=== PATIENT | female | born 1970 | race Caucasian/White ===

== ENCOUNTER 2016-08-22 10:47 | Emergency (ER) | payer OTHER ==
[2016-08-22 11:41] LABS: BASO % 0.3 % (0.0-1.0); EOS # 0.1 K/mm3 (0.0-0.50); EOS % 1.6 % (0.0-3.0); LARGE UNSTAINED CELL # 0.1 K/mm3 (0.0-0.4); LARGE UNSTAINED CELL % 1.6 % (0.0-4.0); LYMPH # 1.1 K/mm3 (1.5-4.5); LYMPH % 17.3 % (24.0-44.0); MEAN CORPUSCULAR HEMOGLOBIN 30.2 pg (27.0-33.0); MEAN CORPUSCULAR HGB CONC 33.8 g/dl (32.0-36.5); MEAN CORPUSCULAR VOLUME 89.2 fl (80.0-96.0); MONO # 0.2 K/mm3 (0.0-0.8); MONO % 4.1 % (0.0-5.0); NEUTROPHILS # 4.3 K/mm3 (1.8-7.7); NEUTROPHILS % 75.1 % (36.0-66.0); PLATELET COUNT, AUTOMATED 364 k/mm3 (150-450); RED CELL DISTRIBUTION WIDTH 11.9 % (11.5-14.5); WHITE BLOOD COUNT 5.8 K/mm3 (4.0-10.0)
[2016-08-22 11:53] LABS: ANION GAP 9 MEQ/L (8-16); BLOOD UREA NITROGEN 8 MG/DL (7-18); CALCIUM LEVEL 8.6 MG/DL (8.5-10.1); CARBON DIOXIDE LEVEL 24 MEQ/L (21-32); CHLORIDE LEVEL 109 MEQ/L (98-107); CREATININE FOR GFR 0.72 MG/DL (0.55-1.02); GLOMERULAR FILTRATION RATE > 60.0 (>58); GLUCOSE, FASTING 88 MG/DL (70-105); POTASSIUM SERUM 4.3 MEQ/L (3.5-5.1); SODIUM LEVEL 142 MEQ/L (136-145)
--- NOTE | 2016-08-22 12:01 | REP ---
Clinical: Acute Headache . Comparison: None . Findings: The ventricles, sulci, and cisterns are normal in position and appearance. Patterson-white differentiation is maintained. No acute intracranial hemorrhage, mass/mass effect, pathology or trauma/injury. No evidence for acute infarction. No extra-axial fluid collection. Calvarium is intact. Paranasal sinuses and mastoid air cells are clear. Impression: Normal noncontrast head CT. No evidence for acute intracranial pathology or trauma/injury. Signed by Juan Duran MD 08/22/2016 11:52 A
[2016-08-22] MEDS ORDERED: ACETAMINOPHEN 325 MG TAB As Ordered ONE (12:53)
[2016-08-22] MEDS ORDERED: ONDANSETRON 4MG/2ML VIAL (J2405) As Ordered ONE (12:53)
[2016-08-22 12:54] LABS: FREE T4 1.26 NG/DL (0.76-1.46)
[2016-08-22] MEDS ORDERED: PROMETHAZINE INJ 25 MG/ML VIAL (J2550) As Ordered ONE (14:00)
--- NOTE | 2016-08-22 15:58 | REP ---
MRA BRAIN WITHOUT CONTRAST: HISTORY: Syncope. 3D [id number] MR angiography was performed at the level of the [place] of [place]. There is no aneurysm, arteriovenous malformation or atherosclerotic lesion. Major intracranial vessels are patent. The vertebral arteries are equal in size. IMPRESSION:Normal MRA brain. Signed by Moises Farr MD 08/22/2016 04:06 P
--- NOTE | 2016-08-22 16:00 | REP ---
MR BRAIN WITHOUT CONTRAST:HISTORY: Syncope. COMPARISON: 08/22/2016 A single small focus of increased signal intensity on T2 weighted images is present in the subcortical white matter of the right parietal lobe. There is no intraparenchymal hemorrhage, infarct, mass or midline shift. The ventricular system is normal in appearance. There is no extracerebral collection. The sinuses are clear. IMPRESSION: There is a single small focus of increased signal intensity in the subcortical white matter of the right parietal lobe. This is a non-specific finding. Signed by Moises Farr MD 08/22/2016 04:07 P
--- NOTE | 2016-08-22 18:55 | EDDOCDS ---
Nurse's Notes [facility] Name: Luda Barbour Age: 45 yrs Sex: Female : 1970 Arrival Date: 08/22/2016 Time: 10:47 Bed 10 Private MD: Jarocho [facility] Diagnosis: Concussion Presentation: 08/22 10:51 Presenting complaint: EMS states: pt fell on 08/08 and evaluated at [place] on 08/10. Was ead told CT was negative. Pt reports knot to back of head after fall, states has gone down since. Pt reports ongoing headaches and "very lethargic" since fall. pt states "I can't eat anything," "I lose track of time, my says I space out. I blacked out for 20 minutes in my car parked at [facility], by myself." Pt brought from [facility]. This patient has no additional risk factors. Adult Sepsis Screening: The patient does not have new or worsening altered mentation. Patient's respiratory rate is less than 22. Systolic blood pressure is greater than 100. Patient has a qSOFA score of 0- Negative Sepsis Screen. Suicide/Homicide risk assessment- the patient denies having any suicidal and/or homicidal ideations and does not present with any other emotional, behavioral or mental health complaints. 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 Transition of care: patient was received from a primary care office; [facility]. 10:51 Acuity: WENDY Level 3 ead 10:51 Method Of Arrival: Ambulance ead Triage Assessment: 10:58 Headache History: This patient does not have a history of previous headaches. General: ead Appears in no apparent distress, well nourished, well groomed, Behavior is appropriate for age, cooperative. Pain: Location: face and scalp Pain currently is 8 out of 10 on a pain scale. Pain began 2 weeks ago Also complains of nausea. The patient is triaged at the bedside. See Assessment in Nurses Notes section of ED record. Neurological: Level of Consciousness is awake, alert, obeys commands, Oriented to person, place, time. Respiratory: Airway is patent Respiratory effort is even, unlabored. GI: Reports nausea, vomiting. Derm: Skin is pink, warm & dry. 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 Vitamin Oral 2 tab once daily 2. vitamin M11-jahwb acid oral Unknown oral once daily 3. Calcium Citrate Oral 2 tabs daily 4. biotin 10,000 mcg oral TbDL daily 5. Lessina 0.1-20 mg-mcg oral tab 1 tab once daily 6. Probiotic oral oral weekly - PMHx: none; - PSHx: gastric sleeve; left knee; - Social history: Smoking status: Patient states former smoker of tobacco. No barriers to communication noted, The patient speaks fluent Luxembourger, Speaks appropriately for age. - Family history: Not pertinent. - : The pt / caregiver states he / she is not on anticoagulants. Home medication list is obtained from the patient. - Exposure Risk Screening:: None identified. Screenin:01 Screening information is obtained from the patient. Fall risk: No risks identified. ead Assistance ADL's: requires no assistance with activities of daily living. Abuse/DV Screen: The patient / caregiver reports he/she is: not in a situation that causes fear, pain or injury. Nutritional screening: No deficits noted. Advance Directives: Currently, there is no health care proxy. There is no active DNR order. There is no living will. There is no Power of Second [place]. home support is adequate. Assessment: 12:00 General: Appears in no apparent distress, comfortable, Behavior is appropriate for age, ead cooperative. Pain: Location: face and scalp. Neurological: Level of Consciousness is awake, alert, obeys commands, Oriented to person, place, time. Neurological: Reports headache weakness. Respiratory: Airway is patent Respiratory effort is even, unlabored. GI: Reports nausea, vomiting. Derm: Skin is pink, warm & dry. 13:00 General: Appears in no apparent distress, comfortable, well nourished, well groomed, ead Behavior is appropriate for age, cooperative. Neurological: Level of Consciousness is awake, alert, obeys commands, Oriented to person, place, time, Moves all extremities. Gait is steady, Speech is normal, Facial symmetry appears normal, Reports headache. Cardiovascular: Capillary refill < 3 seconds Chest pain is denied. Respiratory: Airway is patent Respiratory effort is even, unlabored, Denies shortness of breath. GI: Reports nausea. Derm: Skin is pink, warm & dry. 14:00 General: Appears in no apparent distress, comfortable, Behavior is appropriate for age, ead cooperative. Pain: Location: face and scalp. Neurological: Level of Consciousness is awake, alert, obeys commands, Oriented to person, place, time. Respiratory: Airway is patent Respiratory effort is even, unlabored. Derm: Skin is pink, warm & dry. 16:02 General: pt is returned from MRI, equipment monitor phototypesetting continued. pt reports nausea and ead headache are decreased. . 18:01 General: Appears in no apparent distress, to be sleeping. arouses to voice. reports ead feeling better. denies needs. Cardiovascular: Rhythm is sinus rhythm. Respiratory: Airway is patent Respiratory effort is even, unlabored. Derm: Skin is pink, warm & dry. 18:52 General: Appears in no apparent distress, comfortable, Behavior is appropriate for age, ead cooperative. Neurological: Level of Consciousness is awake, alert, obeys commands, Oriented to person, place, time. Respiratory: No deficits noted. GI: Denies nausea, vomiting, pain. Derm: Skin is pink, warm & dry. Vital Signs: 10:47 BP 133 / 83; Pulse 70; Resp 16; Temp 98.8(O); Pulse Ox 96% on R/A; Weight 65.77 kg (R); ead Height 64 in. (162.56 cm); Pain 8/10; 13:07 BP 121 / 76 Supine; Pulse 64; ead 13:08 BP 120 / 74 Sitting; Pulse 68; ead 13:09 BP 123 / 80 Standing; Pulse 66; ead 13:25 BP 112 / 64 (auto/); ead 13:26 Pulse 60 MON; Pulse Ox 95% ; ead 13:40 BP 145 / 87 (auto/); ead 13:41 Pulse 86 MON; Pulse Ox 97% ; ead 13:55 BP 122 / 58 (auto/); ead 13:55 Pulse 68 MON; Pulse Ox 94% ; ead 14:10 BP 122 / 70 (auto/); ead 14:11 Pulse 62 MON; Pulse Ox 97% ; ead 14:25 BP 125 / 77 (auto/); ead 14:26 Pulse 66 MON; Pulse Ox 96% ; ead 14:40 BP 108 / 63 (auto/); ead 14:41 Pulse 64 MON; Pulse Ox 94% ; ead 15:58 BP 119 / 77 (auto/); ead 16:00 Pulse 60 MON; Resp 16; Pulse Ox 96% on R/A; ead 16:15 BP 144 / 75 (auto/); ead 16:16 Pulse 60 MON; Pulse Ox 96% ; ead 16:30 BP 123 / 70 (auto/); ead 16:31 Pulse 56 MON; Pulse Ox 95% ; ead 16:45 BP 112 / 71 (auto/); ead 16:47 Pulse 56 MON; Resp 16; Pulse Ox 95% on R/A; ead 17:00 BP 122 / 73 (auto/); ead 17:01 Pulse 58 MON; Pulse Ox 95% ; ead 17:15 BP 123 / 75 (auto/); ead 17:16 Pulse 58 MON; Pulse Ox 94% ; ead 17:30 BP 122 / 74 (auto/); ead 17:31 Pulse 58 MON; Pulse Ox 95% ; ead 17:45 BP 125 / 80 (auto/); ead 17:45 Pulse 58 MON; Pulse Ox 95% ; ead 18:00 BP 132 / 75 (auto/); ead 18:00 Pulse 58 MON; Resp 16; Pulse Ox 94% on R/A; ead 18:52 BP 148 / 72; Pulse 67; Resp 16; Temp 99.0(O); Pulse Ox 95% on R/A; Pain 4/10; ead 10:47 Body Mass Index 24.89 (65.77 kg, 162.56 cm) ead Vitals: 10:47 Log In Time N/A - ambulance arrival. ead ED Course: 10:48 Patient visited by Hortensia Zuluaga, MARCELLA. rs6 10:48 Jaroch[facility] is Private Physician. rs6 10:48 Patient moved to Waiting rs6 10:49 Irasema Ballard,RN is Primary Nurse. rs6 10:49 Patient moved to 10 rs6 10:55 Triage Initiated ead 11:09 Patient visited by Irasema Ballard,LUISA. ead 11:30 The patient / caregiver is instructed regarding the plan of care and ED course. ead 11:35 MED Profile Sent. ead 11:35 CBC with Diff Sent. ead 11:35 Inserted saline lock: 20 gauge in left hand and blood collected. The patient tolerated ead the procedure well. 12:02 [facility] le 12:06 Patient visited by Ammy Steinberg FNP. le 12:14 CT Head Without Contrast Returned. EDMS 12:34 Patient visited by Irasema Ballard RN. ead 13:10 Patient visited by Irasema Ballard RN. ead 13:59 Patient visited by Irasema Ballard RN. ead 14:32 Patient name changed from Luda\\S\\\\S\\Angle\\S\\ to Luda\\S\\Dinorah\\S\\Angle. EDMS 14:33 [facility] Payment Agreement was scanned into [employer] and attached to record. lg 15:01 Patient visited by Irasema Ballard RN. ead 15:01 Patient moved to MRI ead 15:32 PCR was scanned into [employer] and attached to record. gb 15:37 Patient moved to 10 ead 16:02 Patient visited by Irasema Ballard RN. ead 16:07 -MRA-Brain without contrast Returned. EDMS 16:07 -MRI-Brain without Returned. EDMS 16:29 Patient visited by Irasema Ballard RN. ead 18:01 Patient visited by Irasema Ballard RN. ead 18:25 Jarocho [facility] is Referral Physician. le 18:52 Discontinued IV intact, bleeding controlled, pressure dressing applied, No ead redness/swelling at site. No procedures done that require assistance. Administered Medications: 13:02 Drug: Ondansetron 4 mg [ondansetron HCl 2 mg/mL intravenous solution (2 mL)] Route: ead IVP; Site: left hand; 13:30 Follow up: Response: Nausea is unchanged; No Adverse Reaction ead 13:03 Drug: NS 0.9% 1000 ml [sodium chloride 0.9 % intravenous solution] Route: IV; Rate: ead bolus; Site: left hand; 16:30 Follow up: IV Status: Completed infusion; IV Intake: 1000ml ead 13:03 Drug: Acetaminophen 650 mg [acetaminophen 325 mg tablet (2 tabs)] Route: PO; ead 14:00 Follow up: Response: No Adverse Reaction; Pain is decreased ead 14:13 Drug: Promethazine 25 mg [promethazine 25 mg/mL injection solution (1 mL)] Route: IVP; ead Site: left antecubital; 14:45 Follow up: Response: Confirmed pt not driving.; Nausea is resolved; No Adverse ead Reaction; Pain is decreased Intake: 16:30 IV: 1000.00ml; Total: 1000.00ml. ead Order Results: Lab Order: CBC with Diff; SPEC'M 08/22/16 11:33 Test: WHITE BLOOD COUNT; Value: 5.8; Range: 4.0-10.0; Units: K/mm3; Status: F Test: RED BLOOD COUNT; Value: 4.06; Range: 4.00-5.40; Units: M/mm3; Status: F Test: HEMOGLOBIN; Value: 12.3; Range: 12.0-16.0; Units: g/dl; Status: F Test: HEMATOCRIT; Value: 36.2; Range: 36.0-47.0; Units: %; Status: F Test: MEAN CORPUSCULAR VOLUME; Value: 89.2; Range: 80.0-96.0; Units: fl; Status: F Test: MEAN CORPUSCULAR HEMOGLOBIN; Value: 30.2; Range: 27.0-33.0; Units: pg; Status: F Test: MEAN CORPUSCULAR HGB CONC; Value: 33.8; Range: 32.0-36.5; Units: g/dl; Status: F Test: RED CELL DISTRIBUTION WIDTH; Value: 11.9; Range: 11.5-14.5; Units: %; Status: F Test: PLATELET COUNT, AUTOMATED; Value: 364; Range: 150-450; Units: k/mm3; Status: F Test: NEUTROPHILS %; Value: 75.1; Range: 36.0-66.0; Abnormal: Above high normal; Units: %; Status: F Test: LYMPH %; Value: 17.3; Range: 24.0-44.0; Abnormal: Below low normal; Units: %; Status: F Test: MONO %; Value: 4.1; Range: 0.0-5.0; Units: %; Status: F Test: EOS %; Value: 1.6; Range: 0.0-3.0; Units: %; Status: F Test: BASO %; Value: 0.3; Range: 0.0-1.0; Units: %; Status: F Test: LARGE UNSTAINED CELL %; Value: 1.6; Range: 0.0-4.0; Units: %; Status: F Test: NEUTROPHILS #; Value: 4.3; Range: 1.8-7.7; Units: K/mm3; Status: F Test: LYMPH #; Value: 1.1; Range: 1.5-4.5; Abnormal: Below low normal; Units: K/mm3; Status: F Test: MONO #; Value: 0.2; Range: 0.0-0.8; Units: K/mm3; Status: F Test: EOS #; Value: 0.1; Range: 0.0-0.50; Units: K/mm3; Status: F Test: BASO #; Value: 0.0; Range: 0.0-0.2; Units: K/mm3; Status: F Test: LARGE UNSTAINED CELL #; Value: 0.1; Range: 0.0-0.4; Units: K/mm3; Status: F Lab Order: MED Profile; SPEC'M 08/22/16 11:33 Test: GLUCOSE, FASTING; Value: 88; Range: 70-105; Units: MG/DL; Status: F Test: BLOOD UREA NITROGEN; Value: 8; Range: 7-18; Units: MG/DL; Status: F Test: CREATININE FOR GFR; Value: 0.72; Range: 0.55-1.02; Units: MG/DL; Status: F Test: GLOMERULAR FILTRATION RATE; Value: > 60.0; Range: >58; Status: F Test: SODIUM LEVEL; Value: 142; Range: 136-145; Units: MEQ/L; Status: F Test: POTASSIUM SERUM; Value: 4.3; Range: 3.5-5.1; Units: MEQ/L; Status: F Test: CHLORIDE LEVEL; Value: 109; Range: 98-107; Abnormal: Above high normal; Units: MEQ/L; Status: F Test: CARBON DIOXIDE LEVEL; Value: 24; Range: 21-32; Units: MEQ/L; Status: F Test: ANION GAP; Value: 9; Range: 8-16; Units: MEQ/L; Status: F Test: CALCIUM LEVEL; Value: 8.6; Range: 8.5-10.1; Units: MG/DL; Status: F Test Note: ; Units are mL/min/1.73 m2 Chronic Kidney Disease Staging per NKF: Stage I & II GFR >=60 Normal to Mildly Decreased Stage III GFR 30-59 Moderately Decreased Stage IV GFR 15-29 Severely Decreased Stage V GFR <15 Very Little GFR Left ESRD GFR <15 on TOY DESIGNER Lab Order: FT4&TSH PANEL; SPEC'M 08/22/16 11:33 Test: THYROID STIMULATING HORMONE; Value: 2.080; Range: 0.358-3.740; Units: uIU/ML; Status: F Test: FREE T4; Value: 1.26; Range: 0.76-1.46; Units: NG/DL; Status: F Radiology Order: CT Head Without Contrast Test: CT Head Without Contrast REASON FOR EXAMINATION: headache; Clinical: Acute Headache .; ; Comparison: None .; ; Findings:; The ventricles, sulci, and cisterns are normal in position and appearance.; Patterson-white differentiation is maintained. No acute intracranial hemorrhage,; mass/mass effect, pathology or trauma/injury. No evidence for acute infarction.; No extra-axial fluid collection. Calvarium is intact. Paranasal sinuses and; mastoid air cells are clear.; ; Impression:; Normal noncontrast head CT.; No evidence for acute intracranial pathology or trauma/injury.; ; ; Signed by; Juan Duran MD 08/22/2016 11:52 A; Radiology Order: -MRA-Brain without contrast Test: -MRA-Brain without contrast REASON FOR EXAMINATION: repeated "syncopal" episodeds;Trauma; MRA BRAIN WITHOUT CONTRAST:; ; HISTORY: Syncope.; ; 3D [id number]-[id number] MR angiography was performed at the level of the [place] of; Segura.; ; There is no aneurysm, arteriovenous malformation or atherosclerotic lesion. Major; intracranial vessels are patent. The vertebral arteries are equal in size.; ; IMPRESSION:Normal MRA brain.; ; ; Signed by; Moises Farr MD 08/22/2016 04:06 P; Radiology Order: -MRI-Brain without Test: -MRI-Brain without REASON FOR EXAMINATION: Trauma; MR BRAIN WITHOUT CONTRAST:HISTORY: Syncope.; ; COMPARISON: 08/22/2016; ; A single small focus of increased signal intensity on T2 weighted images is; present in the subcortical white matter of the right parietal lobe. There is no; intraparenchymal hemorrhage, infarct, mass or midline shift. The ventricular; system is normal in appearance. There is no extracerebral collection. The sinuses; are clear.; ; IMPRESSION:; ; There is a single small focus of increased signal intensity in the subcortical; white matter of the right parietal lobe. This is a non-specific finding.; ; ; Signed by; Moises Farr MD 08/22/2016 04:07 P; Outcome: 11:30 Discharge Assessment: Patient awake and alert. obeys commands, Oriented to person, ead place and time. patient administered narcotics - no. The following High Risk Discharge criteria are identified: None. Discharged to home ambulatory, with significant other. Condition: improved. Discharge instructions given to patient, significant other, Instructed on discharge instructions, follow up and referral plans. Demonstrated understanding of instructions, Pt was receptive of discharge instructions/ teaching. CT Study completed. MRI Study completed. Property sent home with patient. 18:26 Discharge ordered by Provider. le 18:54 Patient left the ED. ead Signatures: Dispatcher [employer] EDMS Bonita Holder, Reg Reg Russ Alonzo, Reg Reg Ammy Cook, HIDE PASTER HIDE PASTER Irasema Jarquin,LUISA RN ead Hortensia Zuluaga, SHIPPER AND RECEIVING SHIPPER AND RECEIVING rs6 MTDD
--- NOTE | 2016-08-22 18:55 | EDDOCDS ---
Physician Documentation [facility] Name: Luda Barbour Age: 45 yrs Sex: Female : 1970 Arrival Date: 08/22/2016 Time: 10:47 Bed 10 Private MD: NYA Avendaño Disposition: 08/22/16 18:26 Discharged to Home/Self Care. Impression: Concussion. - Condition is Stable. - Discharge Instructions: Concussion, Adult. - Medication Reconciliation, Local Pharmacy Hours form. - Follow up: NYA Avendaño; When: Call to arrange an appointment; Reason: Recheck today's complaints, Continuance of care. - Problem is an ongoing problem. - Symptoms are unchanged. - Notes: Keep hydrated You will likely need a referral to the concussion clinic at [place] or a neurologist if your symptoms continue Use your zofran, as needed, for nausea and Ibuprofen/Tylenol as needed for headache Historical: - Allergies: PENICILLINS; Zithromax; Prednisone; - Home Meds: 1. Vitamin Oral 2 tab once daily 2. vitamin V35-udwyl acid oral Unknown oral once daily 3. Calcium Citrate Oral 2 tabs daily 4. biotin 10,000 mcg oral TbDL daily 5. Lessina 0.1-20 mg-mcg oral tab 1 tab once daily 6. Probiotic oral oral weekly - PMHx: none; - PSHx: gastric sleeve; left knee; - Social history: Smoking status: Patient states former smoker of tobacco. No barriers to communication noted, The patient speaks fluent Wallisian, Speaks appropriately for age. - Family history: Not pertinent. - : The pt / caregiver states he / she is not on anticoagulants. Home medication list is obtained from the patient. - Exposure Risk Screening:: None identified. 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 (162.56 cm); Pain 8/10; 13:07 BP 121 / 76 Supine; Pulse 64; ead 13:08 BP 120 / 74 Sitting; Pulse 68; ead 13:09 BP 123 / 80 Standing; Pulse 66; ead 13:25 BP 112 / 64 (auto/); ead 13:26 Pulse 60 MON; Pulse Ox 95% ; ead 13:40 BP 145 / 87 (auto/); ead 13:41 Pulse 86 MON; Pulse Ox 97% ; ead 13:55 BP 122 / 58 (auto/); ead 13:55 Pulse 68 MON; Pulse Ox 94% ; ead 14:10 BP 122 / 70 (auto/); ead 14:11 Pulse 62 MON; Pulse Ox 97% ; ead 14:25 BP 125 / 77 (auto/); ead 14:26 Pulse 66 MON; Pulse Ox 96% ; ead 14:40 BP 108 / 63 (auto/); ead 14:41 Pulse 64 MON; Pulse Ox 94% ; ead 15:58 BP 119 / 77 (auto/); ead 16:00 Pulse 60 MON; Resp 16; Pulse Ox 96% on R/A; ead 16:15 BP 144 / 75 (auto/); ead 16:16 Pulse 60 MON; Pulse Ox 96% ; ead 16:30 BP 123 / 70 (auto/); ead 16:31 Pulse 56 MON; Pulse Ox 95% ; ead 16:45 BP 112 / 71 (auto/); ead 16:47 Pulse 56 MON; Resp 16; Pulse Ox 95% on R/A; ead 17:00 BP 122 / 73 (auto/); ead 17:01 Pulse 58 MON; Pulse Ox 95% ; ead 17:15 BP 123 / 75 (auto/); ead 17:16 Pulse 58 MON; Pulse Ox 94% ; ead 17:30 BP 122 / 74 (auto/); ead 17:31 Pulse 58 MON; Pulse Ox 95% ; ead 17:45 BP 125 / 80 (auto/); ead 17:45 Pulse 58 MON; Pulse Ox 95% ; ead 18:00 BP 132 / 75 (auto/); ead 18:00 Pulse 58 MON; Resp 16; Pulse Ox 94% on R/A; ead 18:52 BP 148 / 72; Pulse 67; Resp 16; Temp 99.0(O); Pulse Ox 95% on R/A; Pain 4/10; ead 10:47 Body Mass Index 24.89 (65.77 kg, 162.56 cm) ead MDM: 11:08 IV Saline Lock ordered. ml 11:08 CT Head Without Contrast Ordered. EDMS 11:09 CBC with Diff Ordered. EDMS 11:09 MED Profile Ordered. EDMS 12:19 CT Head Without Contrast Reviewed. le 12:21 Orthostatic VS ordered. le 12:21 NS 0.9% 1000 ml IV at bolus once ordered. le 12:21 Acetaminophen Tablet 650 mg PO once ordered. le 12:21 MRI Screening Tool - Place on chart, inform RN ordered. le 12:22 -MRA-Brain without contrast Ordered. EDMS 12:22 -MRI-Brain without Ordered. EDMS 12:23 Poultry Farm Worker/Pulse Ox/q 30 min VS ordered. le 12:25 Ondansetron 4 mg IVP once ordered. le 12:59 REGULAR+DIET ordered. EDMS 13:02 MRI Screening Tool - Place on chart, inform RN complete. rs6 13:03 Financial registration complete. lg 13:45 Promethazine 25 mg IVP once; dilute and administer 30-60 minutes ordered. le 14:33 [facility] Payment Agreement was scanned into [employer] and attached to record. lg 14:34 FT4&TSH PANEL Reviewed. le 14:34 CBC with Diff Reviewed. le 14:34 MED Profile Reviewed. le 15:32 PCR was scanned into [employer] and attached to record. gb Administered Medications: 13:02 Drug: Ondansetron 4 mg [ondansetron HCl 2 mg/mL intravenous solution (2 mL)] Route: ead IVP; Site: left hand; 13:30 Follow up: Response: Nausea is unchanged; No Adverse Reaction ead 13:03 Drug: NS 0.9% 1000 ml [sodium chloride 0.9 % intravenous solution] Route: IV; Rate: ead bolus; Site: left hand; 16:30 Follow up: IV Status: Completed infusion; IV Intake: 1000ml ead 13:03 Drug: Acetaminophen 650 mg [acetaminophen 325 mg tablet (2 tabs)] Route: PO; ead 14:00 Follow up: Response: No Adverse Reaction; Pain is decreased ead 14:13 Drug: Promethazine 25 mg [promethazine 25 mg/mL injection solution (1 mL)] Route: IVP; ead Site: left antecubital; 14:45 Follow up: Response: Confirmed pt not driving.; Nausea is resolved; No Adverse ead Reaction; Pain is decreased Signatures: Dispatcher [employer] EDMS Tameka Dinh MD MD ml Bonita Holder, Reg Reg gb Russ Pelletier, Reg Reg lg Ammy Steinberg, ROAD BOSS ROAD BOSS Irasema Jarquin,LUISA RN Hortensia Kwong, CLINICAL EDUCATION COORDINATOR CLINICAL EDUCATION COORDINATOR rs6 The chart was reviewed and I authenticate all verbal orders and agree with the evaluation and treatment provided.Corrections: (The following items were deleted from the chart) 12:31 12:22 FT4&TSH PANEL+LAB ordered. EDMS EDMS Attachments: 14:33 [facility] Payment Agreement lg MTDD
--- NOTE | 2016-08-24 19:55 | EDDOCDS ---
Physician Documentation [facility] Name: Luda Barbour Age: 45 yrs Sex: Female : 1970 Arrival Date: 08/22/2016 Time: 10:47 Bed 10 Private MD: NYA Avendaño Disposition: 08/22/16 18:26 Discharged to Home/Self Care. Impression: Concussion. - Condition is Stable. - Discharge Instructions: Concussion, Adult. - Medication Reconciliation, Local Pharmacy Hours form. - Follow up: NYA Avendaño; When: Call to arrange an appointment; Reason: Recheck today's complaints, Continuance of care. - Problem is an ongoing problem. - Symptoms are unchanged. - Notes: Keep hydrated You will likely need a referral to the concussion clinic at [facility] or a neurologist if your symptoms continue Use your zofran, as needed, for nausea and Ibuprofen/Tylenol as needed for headache Historical: - Allergies: PENICILLINS; Zithromax; Prednisone; - Home Meds: 1. Vitamin Oral 2 tab once daily 2. vitamin I35-[id number] acid oral Unknown oral once daily 3. Calcium Citrate Oral 2 tabs daily 4. biotin 10,000 mcg oral TbDL daily 5. Lessina 0.1-20 mg-mcg oral tab 1 tab once daily 6. Probiotic oral oral weekly - PMHx: none; - PSHx: gastric sleeve; left knee; - Social history: Smoking status: Patient states former smoker of tobacco. No barriers to communication noted, The patient speaks fluent [place], Speaks appropriately for age. - Family history: Not pertinent. - : The pt / caregiver states he / she is not on anticoagulants. Home medication list is obtained from the patient. - Exposure Risk Screening:: None identified. SEE SUPERVISOR: 08/22 10:47 LMP 07/27/2016 ead Vital Signs: 10:47 BP 133 / 83; Pulse 70; Resp 16; Temp 98.8(O); Pulse Ox 96% on R/A; Weight 65.77 kg / ead 145 lbs (R); Height 64 in. (162.56 cm); Pain 8/10; 13:07 BP 121 / 76 Supine; Pulse 64; ead 13:08 BP 120 / 74 Sitting; Pulse 68; ead 13:09 BP 123 / 80 Standing; Pulse 66; ead 13:25 BP 112 / 64 (auto/); ead 13:26 Pulse 60 MON; Pulse Ox 95% ; ead 13:40 BP 145 / 87 (auto/); ead 13:41 Pulse 86 MON; Pulse Ox 97% ; ead 13:55 BP 122 / 58 (auto/); ead 13:55 Pulse 68 MON; Pulse Ox 94% ; ead 14:10 BP 122 / 70 (auto/); ead 14:11 Pulse 62 MON; Pulse Ox 97% ; ead 14:25 BP 125 / 77 (auto/); ead 14:26 Pulse 66 MON; Pulse Ox 96% ; ead 14:40 BP 108 / 63 (auto/); ead 14:41 Pulse 64 MON; Pulse Ox 94% ; ead 15:58 BP 119 / 77 (auto/); ead 16:00 Pulse 60 MON; Resp 16; Pulse Ox 96% on R/A; ead 16:15 BP 144 / 75 (auto/); ead 16:16 Pulse 60 MON; Pulse Ox 96% ; ead 16:30 BP 123 / 70 (auto/); ead 16:31 Pulse 56 MON; Pulse Ox 95% ; ead 16:45 BP 112 / 71 (auto/); ead 16:47 Pulse 56 MON; Resp 16; Pulse Ox 95% on R/A; ead 17:00 BP 122 / 73 (auto/); ead 17:01 Pulse 58 MON; Pulse Ox 95% ; ead 17:15 BP 123 / 75 (auto/); ead 17:16 Pulse 58 MON; Pulse Ox 94% ; ead 17:30 BP 122 / 74 (auto/); ead 17:31 Pulse 58 MON; Pulse Ox 95% ; ead 17:45 BP 125 / 80 (auto/); ead 17:45 Pulse 58 MON; Pulse Ox 95% ; ead 18:00 BP 132 / 75 (auto/); ead 18:00 Pulse 58 MON; Resp 16; Pulse Ox 94% on R/A; ead 18:52 BP 148 / 72; Pulse 67; Resp 16; Temp 99.0(O); Pulse Ox 95% on R/A; Pain 4/10; ead 10:47 Body Mass Index 24.89 (65.77 kg, 162.56 cm) ead MDM: 11:08 IV Saline Lock ordered. ml 11:08 CT Head Without Contrast Ordered. EDMS 11:09 CBC with Diff Ordered. EDMS 11:09 MED Profile Ordered. EDMS 12:19 CT Head Without Contrast Reviewed. le 12:21 Orthostatic VS ordered. le 12:21 NS 0.9% 1000 ml IV at bolus once ordered. le 12:21 Acetaminophen Tablet 650 mg PO once ordered. le 12:21 MRI Screening Tool - Place on chart, inform RN ordered. le 12:22 -MRA-Brain without contrast Ordered. EDMS 12:22 -MRI-Brain without Ordered. EDMS 12:23 Clinical Quality Assurance Associate/Pulse Ox/q 30 min VS ordered. le 12:25 Ondansetron 4 mg IVP once ordered. le 12:59 REGULAR+DIET ordered. EDMS 13:02 MRI Screening Tool - Place on chart, inform RN complete. rs6 13:03 Financial registration complete. lg 13:45 Promethazine 25 mg IVP once; dilute and administer 30-60 minutes ordered. le 14:33 [facility] Payment Agreement was scanned into [employer] and attached to record. lg 14:34 FT4&TSH PANEL Reviewed. le 14:34 CBC with Diff Reviewed. le 14:34 MED Profile Reviewed. le 15:32 PCR was scanned into [employer] and attached to record. gb 08/23 10:39 T-Sheet-- Draft Copy was scanned into [employer] and attached to record. gb 08/24 13:06 ED course: trinidad baez faxed formal report of mri for fu mlg. ml Administered Medications: 08/22 13:02 Drug: Ondansetron 4 mg [ondansetron HCl 2 mg/mL intravenous solution (2 mL)] Route: ead IVP; Site: left hand; 13:30 Follow up: Response: Nausea is unchanged; No Adverse Reaction ead 13:03 Drug: NS 0.9% 1000 ml [sodium chloride 0.9 % intravenous solution] Route: IV; Rate: ead bolus; Site: left hand; 16:30 Follow up: IV Status: Completed infusion; IV Intake: 1000ml ead 13:03 Drug: Acetaminophen 650 mg [acetaminophen 325 mg tablet (2 tabs)] Route: PO; ead 14:00 Follow up: Response: No Adverse Reaction; Pain is decreased ead 14:13 Drug: Promethazine 25 mg [promethazine 25 mg/mL injection solution (1 mL)] Route: IVP; ead Site: left antecubital; 14:45 Follow up: Response: Confirmed pt not driving.; Nausea is resolved; No Adverse ead Reaction; Pain is decreased Signatures: Dispatcher [employer] EDMS Tameka Dinh MD MD ml Bonita Holder, Reg Reg gb Russ Pelletier, Reg Reg lg Ammy Steinberg, NECK CUTTER NECK CUTTER Irasema Jarquin RN RN ead Hortensia Zuluaga, GAME ADVISOR GAME ADVISOR rs6 The chart was reviewed and I authenticate all verbal orders and agree with the evaluation and treatment provided.Corrections: (The following items were deleted from the chart) 12:31 12:22 FT4&TSH PANEL+LAB ordered. EDMS EDMS Attachments: 14:33 [facility] Payment Agreement lg 08/23 10:39 T-Sheet-- Draft Copy gb Chart Complete MTDD
--- NOTE | 2016-08-24 19:55 | EDDOCDS ---
Physician Documentation [facility] Name: Luda Barbour Age: 45 yrs Sex: Female : 1970 Arrival Date: 08/22/2016 Time: 10:47 Bed 10 Private MD: NYA Avendaño Disposition: 08/22/16 18:26 Discharged to Home/Self Care. Impression: Concussion. - Condition is Stable. - Discharge Instructions: Concussion, Adult. - Medication Reconciliation, Local Pharmacy Hours form. - Follow up: NYA Avendaño; When: Call to arrange an appointment; Reason: Recheck today's complaints, Continuance of care. - Problem is an ongoing problem. - Symptoms are unchanged. - Notes: Keep hydrated You will likely need a referral to the concussion clinic at [facility] or a neurologist if your symptoms continue Use your zofran, as needed, for nausea and Ibuprofen/Tylenol as needed for headache Historical: - Allergies: PENICILLINS; Zithromax; Prednisone; - Home Meds: 1. Vitamin Oral 2 tab once daily 2. vitamin Q45-aqoog acid oral Unknown oral once daily 3. Calcium Citrate Oral 2 tabs daily 4. biotin 10,000 mcg oral TbDL daily 5. Lessina 0.1-20 mg-mcg oral tab 1 tab once daily 6. Probiotic oral oral weekly - PMHx: none; - PSHx: gastric sleeve; left knee; - Social history: Smoking status: Patient states former smoker of tobacco. No barriers to communication noted, The patient speaks fluent Burmese, Speaks appropriately for age. - Family history: Not pertinent. - : The pt / caregiver states he / she is not on anticoagulants. Home medication list is obtained from the patient. - Exposure Risk Screening:: None identified. BILLING SPEC: 08/22 10:47 LMP 07/27/2016 ead Vital Signs: 10:47 BP 133 / 83; Pulse 70; Resp 16; Temp 98.8(O); Pulse Ox 96% on R/A; Weight 65.77 kg / ead 145 lbs (R); Height 64 in. (162.56 cm); Pain 8/10; 13:07 BP 121 / 76 Supine; Pulse 64; ead 13:08 BP 120 / 74 Sitting; Pulse 68; ead 13:09 BP 123 / 80 Standing; Pulse 66; ead 13:25 BP 112 / 64 (auto/); ead 13:26 Pulse 60 MON; Pulse Ox 95% ; ead 13:40 BP 145 / 87 (auto/); ead 13:41 Pulse 86 MON; Pulse Ox 97% ; ead 13:55 BP 122 / 58 (auto/); ead 13:55 Pulse 68 MON; Pulse Ox 94% ; ead 14:10 BP 122 / 70 (auto/); ead 14:11 Pulse 62 MON; Pulse Ox 97% ; ead 14:25 BP 125 / 77 (auto/); ead 14:26 Pulse 66 MON; Pulse Ox 96% ; ead 14:40 BP 108 / 63 (auto/); ead 14:41 Pulse 64 MON; Pulse Ox 94% ; ead 15:58 BP 119 / 77 (auto/); ead 16:00 Pulse 60 MON; Resp 16; Pulse Ox 96% on R/A; ead 16:15 BP 144 / 75 (auto/); ead 16:16 Pulse 60 MON; Pulse Ox 96% ; ead 16:30 BP 123 / 70 (auto/); ead 16:31 Pulse 56 MON; Pulse Ox 95% ; ead 16:45 BP 112 / 71 (auto/); ead 16:47 Pulse 56 MON; Resp 16; Pulse Ox 95% on R/A; ead 17:00 BP 122 / 73 (auto/); ead 17:01 Pulse 58 MON; Pulse Ox 95% ; ead 17:15 BP 123 / 75 (auto/); ead 17:16 Pulse 58 MON; Pulse Ox 94% ; ead 17:30 BP 122 / 74 (auto/); ead 17:31 Pulse 58 MON; Pulse Ox 95% ; ead 17:45 BP 125 / 80 (auto/); ead 17:45 Pulse 58 MON; Pulse Ox 95% ; ead 18:00 BP 132 / 75 (auto/); ead 18:00 Pulse 58 MON; Resp 16; Pulse Ox 94% on R/A; ead 18:52 BP 148 / 72; Pulse 67; Resp 16; Temp 99.0(O); Pulse Ox 95% on R/A; Pain 4/10; ead 10:47 Body Mass Index 24.89 (65.77 kg, 162.56 cm) ead MDM: 11:08 IV Saline Lock ordered. ml 11:08 CT Head Without Contrast Ordered. EDMS 11:09 CBC with Diff Ordered. EDMS 11:09 MED Profile Ordered. EDMS 12:19 CT Head Without Contrast Reviewed. le 12:21 Orthostatic VS ordered. le 12:21 NS 0.9% 1000 ml IV at bolus once ordered. le 12:21 Acetaminophen Tablet 650 mg PO once ordered. le 12:21 MRI Screening Tool - Place on chart, inform RN ordered. le 12:22 -MRA-Brain without contrast Ordered. EDMS 12:22 -MRI-Brain without Ordered. EDMS 12:23 Game Farm Supervisor/Pulse Ox/q 30 min VS ordered. le 12:25 Ondansetron 4 mg IVP once ordered. le 12:59 REGULAR+DIET ordered. EDMS 13:02 MRI Screening Tool - Place on chart, inform RN complete. rs6 13:03 Financial registration complete. lg 13:45 Promethazine 25 mg IVP once; dilute and administer 30-60 minutes ordered. le 14:33 [facility] Payment Agreement was scanned into [email or web address] and attached to record. lg 14:34 FT4&TSH PANEL Reviewed. le 14:34 CBC with Diff Reviewed. le 14:34 MED Profile Reviewed. le 15:32 PCR was scanned into [email or web address] and attached to record. gb 08/23 10:39 T-Sheet-- Draft Copy was scanned into [email or web address] and attached to record. gb 08/24 13:06 ED course: trinidad baez faxed formal report of mri for fu mlg. ml Administered Medications: 08/22 13:02 Drug: Ondansetron 4 mg [ondansetron HCl 2 mg/mL intravenous solution (2 mL)] Route: ead IVP; Site: left hand; 13:30 Follow up: Response: Nausea is unchanged; No Adverse Reaction ead 13:03 Drug: NS 0.9% 1000 ml [sodium chloride 0.9 % intravenous solution] Route: IV; Rate: ead bolus; Site: left hand; 16:30 Follow up: IV Status: Completed infusion; IV Intake: 1000ml ead 13:03 Drug: Acetaminophen 650 mg [acetaminophen 325 mg tablet (2 tabs)] Route: PO; ead 14:00 Follow up: Response: No Adverse Reaction; Pain is decreased ead 14:13 Drug: Promethazine 25 mg [promethazine 25 mg/mL injection solution (1 mL)] Route: IVP; ead Site: left antecubital; 14:45 Follow up: Response: Confirmed pt not driving.; Nausea is resolved; No Adverse ead Reaction; Pain is decreased Signatures: Dispatcher [employer] EDMS Tameka Dinh MD MD ml Bonita Holder, Reg Reg gb Russ Pelletier, Reg Reg lg Ammy Steinberg, RESTAURANT SERVER RESTAURANT SERVER Irasema Jarquin RN RN ead Hortensia Zuluaga, AQUACULTURAL WORKER SUPERVISOR AQUACULTURAL WORKER SUPERVISOR rs6 The chart was reviewed and I authenticate all verbal orders and agree with the evaluation and treatment provided.Corrections: (The following items were deleted from the chart) 12:31 12:22 FT4&TSH PANEL+LAB ordered. EDMS EDMS Attachments: 14:33 [facility] Payment Agreement lg 08/23 10:39 T-Sheet-- Draft Copy gb Chart Complete MTDD
--- NOTE | 2016-08-24 19:55 | EDDOCDS ---
Nurse's Notes [facility] Name: Luda Barbour Age: 45 yrs Sex: Female : 1970 Arrival Date: 08/22/2016 Time: 10:47 Bed 10 Private MD: Jarocho [facility] Diagnosis: Concussion Presentation: 08/22 10:51 Presenting complaint: EMS states: pt fell on 08/08 and evaluated at [place] on 08/10. Was ead told CT was negative. Pt reports knot to back of head after fall, states has gone down since. Pt reports ongoing headaches and "very lethargic" since fall. pt states "I can't eat anything," "I lose track of time, my says I space out. I blacked out for 20 minutes in [facility], by myself." Pt brought from [facility]. This patient has no additional risk factors. Adult Sepsis Screening: The patient does not have new or worsening altered mentation. Patient's respiratory rate is less than 22. Systolic blood pressure is greater than 100. Patient has a qSOFA score of 0- Negative Sepsis Screen. Suicide/Homicide risk assessment- the patient denies having any suicidal and/or homicidal ideations and does not present with any other emotional, behavioral or mental health complaints. 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 Transition of care: patient was received from a primary care office; [facility]. 10:51 Acuity: WENDY Level 3 ead 10:51 Method Of Arrival: Ambulance ead Triage Assessment: 10:58 Headache History: This patient does not have a history of previous headaches. General: ead Appears in no apparent distress, well nourished, well groomed, Behavior is appropriate for age, cooperative. Pain: Location: face and scalp Pain currently is 8 out of 10 on a pain scale. Pain began 2 weeks ago Also complains of nausea. The patient is triaged at the bedside. See Assessment in Nurses Notes section of ED record. Neurological: Level of Consciousness is awake, alert, obeys commands, Oriented to person, place, time. Respiratory: Airway is patent Respiratory effort is even, unlabored. GI: Reports nausea, vomiting. Derm: Skin is pink, warm & dry. 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 Vitamin Oral 2 tab once daily 2. vitamin L78-feaws acid oral Unknown oral once daily 3. Calcium Citrate Oral 2 tabs daily 4. biotin 10,000 mcg oral TbDL daily 5. Lessina 0.1-20 mg-mcg oral tab 1 tab once daily 6. Probiotic oral oral weekly - PMHx: none; - PSHx: gastric sleeve; left knee; - Social history: Smoking status: Patient states former smoker of tobacco. No barriers to communication noted, The patient speaks fluent Mauritanian, Speaks appropriately for age. - Family history: Not pertinent. - : The pt / caregiver states he / she is not on anticoagulants. Home medication list is obtained from the patient. - Exposure Risk Screening:: None identified. Screenin:01 Screening information is obtained from the patient. Fall risk: No risks identified. ead Assistance ADL's: requires no assistance with activities of daily living. Abuse/DV Screen: The patient / caregiver reports he/she is: not in a situation that causes fear, pain or injury. Nutritional screening: No deficits noted. Advance Directives: Currently, there is no health care proxy. There is no active DNR order. There is no living will. There is no Power of Paving Block Cutter. home support is adequate. Assessment: 12:00 General: Appears in no apparent distress, comfortable, Behavior is appropriate for age, ead cooperative. Pain: Location: face and scalp. Neurological: Level of Consciousness is awake, alert, obeys commands, Oriented to person, place, time. Neurological: Reports headache weakness. Respiratory: Airway is patent Respiratory effort is even, unlabored. GI: Reports nausea, vomiting. Derm: Skin is pink, warm & dry. 13:00 General: Appears in no apparent distress, comfortable, well nourished, well groomed, ead Behavior is appropriate for age, cooperative. Neurological: Level of Consciousness is awake, alert, obeys commands, Oriented to person, place, time, Moves all extremities. Gait is steady, Speech is normal, Facial symmetry appears normal, Reports headache. Cardiovascular: Capillary refill < 3 seconds Chest pain is denied. Respiratory: Airway is patent Respiratory effort is even, unlabored, Denies shortness of breath. GI: Reports nausea. Derm: Skin is pink, warm & dry. 14:00 General: Appears in no apparent distress, comfortable, Behavior is appropriate for age, ead cooperative. Pain: Location: face and scalp. Neurological: Level of Consciousness is awake, alert, obeys commands, Oriented to person, place, time. Respiratory: Airway is patent Respiratory effort is even, unlabored. Derm: Skin is pink, warm & dry. 16:02 General: pt is returned from MRI, security expert continued. pt reports nausea and ead headache are decreased. . 18:01 General: Appears in no apparent distress, to be sleeping. arouses to voice. reports ead feeling better. denies needs. Cardiovascular: Rhythm is sinus rhythm. Respiratory: Airway is patent Respiratory effort is even, unlabored. Derm: Skin is pink, warm & dry. 18:52 General: Appears in no apparent distress, comfortable, Behavior is appropriate for age, ead cooperative. Neurological: Level of Consciousness is awake, alert, obeys commands, Oriented to person, place, time. Respiratory: No deficits noted. GI: Denies nausea, vomiting, pain. Derm: Skin is pink, warm & dry. Vital Signs: 10:47 BP 133 / 83; Pulse 70; Resp 16; Temp 98.8(O); Pulse Ox 96% on R/A; Weight 65.77 kg (R); ead Height 64 in. (162.56 cm); Pain 8/10; 13:07 BP 121 / 76 Supine; Pulse 64; ead 13:08 BP 120 / 74 Sitting; Pulse 68; ead 13:09 BP 123 / 80 Standing; Pulse 66; ead 13:25 BP 112 / 64 (auto/); ead 13:26 Pulse 60 MON; Pulse Ox 95% ; ead 13:40 BP 145 / 87 (auto/); ead 13:41 Pulse 86 MON; Pulse Ox 97% ; ead 13:55 BP 122 / 58 (auto/); ead 13:55 Pulse 68 MON; Pulse Ox 94% ; ead 14:10 BP 122 / 70 (auto/); ead 14:11 Pulse 62 MON; Pulse Ox 97% ; ead 14:25 BP 125 / 77 (auto/); ead 14:26 Pulse 66 MON; Pulse Ox 96% ; ead 14:40 BP 108 / 63 (auto/); ead 14:41 Pulse 64 MON; Pulse Ox 94% ; ead 15:58 BP 119 / 77 (auto/); ead 16:00 Pulse 60 MON; Resp 16; Pulse Ox 96% on R/A; ead 16:15 BP 144 / 75 (auto/); ead 16:16 Pulse 60 MON; Pulse Ox 96% ; ead 16:30 BP 123 / 70 (auto/); ead 16:31 Pulse 56 MON; Pulse Ox 95% ; ead 16:45 BP 112 / 71 (auto/); ead 16:47 Pulse 56 MON; Resp 16; Pulse Ox 95% on R/A; ead 17:00 BP 122 / 73 (auto/); ead 17:01 Pulse 58 MON; Pulse Ox 95% ; ead 17:15 BP 123 / 75 (auto/); ead 17:16 Pulse 58 MON; Pulse Ox 94% ; ead 17:30 BP 122 / 74 (auto/); ead 17:31 Pulse 58 MON; Pulse Ox 95% ; ead 17:45 BP 125 / 80 (auto/); ead 17:45 Pulse 58 MON; Pulse Ox 95% ; ead 18:00 BP 132 / 75 (auto/); ead 18:00 Pulse 58 MON; Resp 16; Pulse Ox 94% on R/A; ead 18:52 BP 148 / 72; Pulse 67; Resp 16; Temp 99.0(O); Pulse Ox 95% on R/A; Pain 4/10; ead 10:47 Body Mass Index 24.89 (65.77 kg, 162.56 cm) ead Vitals: 10:47 Log In Time N/A - ambulance arrival. ead ED Course: 10:48 Patient visited by Hortensia Zuluaga, MARCELLA. rs6 10:48 Jarocho [facility] is Private Physician. rs6 10:48 Patient moved to Waiting rs6 10:49 Irasema Blalard,RN is Primary Nurse. rs6 10:49 Patient moved to 10 rs6 10:55 Triage Initiated ead 11:09 Patient visited by Irasema Ballard,LUISA. ead 11:30 The patient / caregiver is instructed regarding the plan of care and ED course. ead 11:35 MED Profile Sent. ead 11:35 CBC with Diff Sent. ead 11:35 Inserted saline lock: 20 gauge in left hand and blood collected. The patient tolerated ead the procedure well. 12:02 Ammy Steinberg FNP [facility]. le 12:06 Patient visited by Ammy Steinberg FNP. le 12:14 CT Head Without Contrast Returned. EDMS 12:34 Patient visited by Irasema Ballard RN. ead 13:10 Patient visited by Irasema Ballard RN. ead 13:59 Patient visited by Irasema Ballard RN. ead 14:32 Patient name changed from Luda\\S\\\\S\\Angle\\S\\ to Luda\\S\\Dinorah\\S\\Angle. EDMS 14:33 [facility] Payment Agreement was scanned into Clutch and attached to record. lg 15:01 Patient visited by Irasema Ballard RN. ead 15:01 Patient moved to MRI ead 15:32 PCR was scanned into Clutch and attached to record. gb 15:37 Patient moved to 10 ead 16:02 Patient visited by Irasema Ballard RN. ead 16:07 -MRA-Brain without contrast Returned. EDMS 16:07 -MRI-Brain without Returned. EDMS 16:29 Patient visited by Irasema Ballard RN. ead 18:01 Patient visited by Irasema Ballard RN. ead 18:25 Jarocho [facility] is Referral Physician. le 18:52 Discontinued IV intact, bleeding controlled, pressure dressing applied, No ead redness/swelling at site. No procedures done that require assistance. 08/23 10:39 T-Sheet-- Draft Copy was scanned into Clutch and attached to record. gb Administered Medications: 08/22 13:02 Drug: Ondansetron 4 mg [ondansetron HCl 2 mg/mL intravenous solution (2 mL)] Route: ead IVP; Site: left hand; 13:30 Follow up: Response: Nausea is unchanged; No Adverse Reaction ead 13:03 Drug: NS 0.9% 1000 ml [sodium chloride 0.9 % intravenous solution] Route: IV; Rate: ead bolus; Site: left hand; 16:30 Follow up: IV Status: Completed infusion; IV Intake: 1000ml ead 13:03 Drug: Acetaminophen 650 mg [acetaminophen 325 mg tablet (2 tabs)] Route: PO; ead 14:00 Follow up: Response: No Adverse Reaction; Pain is decreased ead 14:13 Drug: Promethazine 25 mg [promethazine 25 mg/mL injection solution (1 mL)] Route: IVP; ead Site: left antecubital; 14:45 Follow up: Response: Confirmed pt not driving.; Nausea is resolved; No Adverse ead Reaction; Pain is decreased Intake: 16:30 IV: 1000.00ml; Total: 1000.00ml. ead Order Results: Lab Order: CBC with Diff; SPEC'M 08/22/16 11:33 Test: WHITE BLOOD COUNT; Value: 5.8; Range: 4.0-10.0; Units: K/mm3; Status: F Test: RED BLOOD COUNT; Value: 4.06; Range: 4.00-5.40; Units: M/mm3; Status: F Test: HEMOGLOBIN; Value: 12.3; Range: 12.0-16.0; Units: g/dl; Status: F Test: HEMATOCRIT; Value: 36.2; Range: 36.0-47.0; Units: %; Status: F Test: MEAN CORPUSCULAR VOLUME; Value: 89.2; Range: 80.0-96.0; Units: fl; Status: F Test: MEAN CORPUSCULAR HEMOGLOBIN; Value: 30.2; Range: 27.0-33.0; Units: pg; Status: F Test: MEAN CORPUSCULAR HGB CONC; Value: 33.8; Range: 32.0-36.5; Units: g/dl; Status: F Test: RED CELL DISTRIBUTION WIDTH; Value: 11.9; Range: 11.5-14.5; Units: %; Status: F Test: PLATELET COUNT, AUTOMATED; Value: 364; Range: 150-450; Units: k/mm3; Status: F Test: NEUTROPHILS %; Value: 75.1; Range: 36.0-66.0; Abnormal: Above high normal; Units: %; Status: F Test: LYMPH %; Value: 17.3; Range: 24.0-44.0; Abnormal: Below low normal; Units: %; Status: F Test: MONO %; Value: 4.1; Range: 0.0-5.0; Units: %; Status: F Test: EOS %; Value: 1.6; Range: 0.0-3.0; Units: %; Status: F Test: BASO %; Value: 0.3; Range: 0.0-1.0; Units: %; Status: F Test: LARGE UNSTAINED CELL %; Value: 1.6; Range: 0.0-4.0; Units: %; Status: F Test: NEUTROPHILS #; Value: 4.3; Range: 1.8-7.7; Units: K/mm3; Status: F Test: LYMPH #; Value: 1.1; Range: 1.5-4.5; Abnormal: Below low normal; Units: K/mm3; Status: F Test: MONO #; Value: 0.2; Range: 0.0-0.8; Units: K/mm3; Status: F Test: EOS #; Value: 0.1; Range: 0.0-0.50; Units: K/mm3; Status: F Test: BASO #; Value: 0.0; Range: 0.0-0.2; Units: K/mm3; Status: F Test: LARGE UNSTAINED CELL #; Value: 0.1; Range: 0.0-0.4; Units: K/mm3; Status: F Lab Order: [facility]; [facility] 08/22/16 11:33 Test: GLUCOSE, FASTING; Value: 88; Range: 70-105; Units: MG/DL; Status: F Test: BLOOD UREA NITROGEN; Value: 8; Range: 7-18; Units: MG/DL; Status: F Test: CREATININE FOR GFR; Value: 0.72; Range: 0.55-1.02; Units: MG/DL; Status: F Test: GLOMERULAR FILTRATION RATE; Value: > 60.0; Range: >58; Status: F Test: SODIUM LEVEL; Value: 142; Range: 136-145; Units: MEQ/L; Status: F Test: POTASSIUM SERUM; Value: 4.3; Range: 3.5-5.1; Units: MEQ/L; Status: F Test: CHLORIDE LEVEL; Value: 109; Range: 98-107; Abnormal: Above high normal; Units: MEQ/L; Status: F Test: CARBON DIOXIDE LEVEL; Value: 24; Range: 21-32; Units: MEQ/L; Status: F Test: ANION GAP; Value: 9; Range: 8-16; Units: MEQ/L; Status: F Test: CALCIUM LEVEL; Value: 8.6; Range: 8.5-10.1; Units: MG/DL; Status: F Test Note: ; Units are mL/min/1.73 m2 Chronic Kidney Disease Staging per NKF: Stage I & II GFR >=60 Normal to Mildly Decreased Stage III GFR 30-59 Moderately Decreased Stage IV GFR 15-29 Severely Decreased Stage V GFR <15 Very Little GFR Left ESRD GFR <15 on ALL SOURCE INTELLIGENCE ANALYST Lab Order: FT4&TSH PANEL; SPEC'M 08/22/16 11:33 Test: THYROID STIMULATING HORMONE; Value: 2.080; Range: 0.358-3.740; Units: uIU/ML; Status: F Test: FREE T4; Value: 1.26; Range: 0.76-1.46; Units: NG/DL; Status: F Radiology Order: CT Head Without Contrast Test: CT Head Without Contrast REASON FOR EXAMINATION: headache; Clinical: Acute Headache .; ; Comparison: None .; ; Findings:; The ventricles, sulci, and cisterns are normal in position and appearance.; Patterson-white differentiation is maintained. No acute intracranial hemorrhage,; mass/mass effect, pathology or trauma/injury. No evidence for acute infarction.; No extra-axial fluid collection. Calvarium is intact. Paranasal sinuses and; mastoid air cells are clear.; ; Impression:; Normal noncontrast head CT.; No evidence for acute intracranial pathology or trauma/injury.; ; ; Signed by; Juan Duran MD 08/22/2016 11:52 A; Radiology Order: -MRA-Brain without contrast Test: -MRA-Brain without contrast REASON FOR EXAMINATION: repeated "syncopal" episodeds;Trauma; MRA BRAIN WITHOUT CONTRAST:; ; HISTORY: Syncope.; ; 3D [id number] MR angiography was performed at the level of the [place] of; Segura.; ; There is no aneurysm, arteriovenous malformation or atherosclerotic lesion. Major; intracranial vessels are patent. The vertebral arteries are equal in size.; ; IMPRESSION:Normal MRA brain.; ; ; Signed by; Moises Farr MD 08/22/2016 04:06 P; Radiology Order: -MRI-Brain without Test: -MRI-Brain without REASON FOR EXAMINATION: Trauma; MR BRAIN WITHOUT CONTRAST:HISTORY: Syncope.; ; COMPARISON: 08/22/2016; ; A single small focus of increased signal intensity on T2 weighted images is; present in the subcortical white matter of the right parietal lobe. There is no; intraparenchymal hemorrhage, infarct, mass or midline shift. The ventricular; system is normal in appearance. There is no extracerebral collection. The sinuses; are clear.; ; IMPRESSION:; ; There is a single small focus of increased signal intensity in the subcortical; white matter of the right parietal lobe. This is a non-specific finding.; ; ; Signed by; Moises Farr MD 08/22/2016 04:07 P; Outcome: 11:30 Discharge Assessment: Patient awake and alert. obeys commands, Oriented to person, ead place and time. patient administered narcotics - no. The following High Risk Discharge criteria are identified: None. Discharged to home ambulatory, with significant other. Condition: improved. Discharge instructions given to patient, significant other, Instructed on discharge instructions, follow up and referral plans. Demonstrated understanding of instructions, Pt was receptive of discharge instructions/ teaching. CT Study completed. MRI Study completed. Property sent home with patient. 18:26 Discharge ordered by Provider. le 18:54 Patient left the ED. ead Signatures: Dispatcher [employer] EDMS Bonita Holder, Reg Reg gb Russ Pelletier, Reg Reg lg Ammy Steinberg, WATER TREATMENT PLANT OPERATOR Irasema Thornton,RN RN Hortensia Kwong, ROLLER HELPER ROLLER HELPER rs6 Chart Complete MTDD
== END 2016-08-22 18:54 | disposition home or self-care (01) ==
LOC: M ED 10:47
DX: S06.0X0A Concussion without loss of consciousness, initial encounter (principal); W19.XXXA Unspecified fall, initial encounter; Y92.018 Other place in single-family (private) house as the place of occurrence of the external cause; Y93.89 Activity, other specified; Y99.8 Other external cause status; Z79.899 Other long term (current) drug therapy; Z88.0 Allergy status to penicillin; Z88.1 Allergy status to other antibiotic agents; Z88.8 Allergy status to other drugs, medicaments and biological substances; Z87.891 Personal history of nicotine dependence
CPT/HCPCS: 36415; 70450; 70544; 70551; 80048; 84439; 84443; 85025; 93041; 96361; 96374; 96375; 99285; J2405

== ENCOUNTER → 2017-02-03 | Outpatient (CLI) | payer OTHER ==
[~2017-02-03] MED LIST: Acetaminophen; MACR100C43 PO; NORCOTAB PO; PRENTAB40 PO; Prenatal; TOPI200T7 PO; TYLE325C PO; VITA10002; ZOFR4TAB3 PO
--- NOTE | 2017-02-03 16:24 | REP ---
HISTORY: Headaches. COMPARISON: 08/22/2016 GADOLINIUM: 13 mL of ProHance. TECHNIQUE: sagittal T1. Coronal post gadolinium enhanced T1. Axial FLAIR, T2, DWI, ADC and post gadolinium enhanced T1. FINDINGS: The craniocervical junction is within normal limits. There is no cerebellar tonsillar ectopia. The visualized portions of the spinal cord and neural canal are within normal limits. The ventricles and sulci are within normal limits. There are no extra-axial fluid collections. There is no mass effect on the noncontrast scan and there are no enhancing mass lesions on the post contrast scan. The deep cerebral white matter is within normal limits for the patient's age. The orbital and petrous structures, cerebellopontine angles and posterior fossa are within normal limits. The sella turcica, cavernous and paracavernous structures are within normal limits. The visualized portions of the paranasal sinuses and the mastoid air cells are clear. DWI and ADC mapping shows normal signal throughout the brain parenchyma. IMPRESSION: Unremarkable MRI examination of the brain. The small single focus of T2 and FLAIR signal hyperintensity in the gilbert radiata of the right parietal lobe on the right is no longer present. Signed by Thomas Kaiser DO 02/03/2017 04:49 P
== END ==
LOC: M RAD 14:03
PROVIDERS: ATTEND Family Medicine
DX: R51 Headache (principal)
CPT/HCPCS: 70553; A9576

== ENCOUNTER 2017-04-07 08:37 | Emergency (ER) | payer OTHER ==
[~2017-04-07] VITALS: Ht 165.1 cm; Wt 66.8 kg
[2017-04-07 08:38] VITALS: BP 134/77
[2017-04-07] MEDS ORDERED: VITA10002 (09:14)
[2017-04-07] MEDS ORDERED: Acetaminophen (09:14)
[2017-04-07] MEDS ORDERED: TOPI200T7 PO (09:14)
[2017-04-07] MEDS ORDERED: Prenatal (09:14)
[2017-04-07] MEDS ORDERED: ZOFR4TAB3 PO (09:50)
[2017-04-07] MEDS ORDERED: NORCOTAB PO (09:50)
[2017-04-07] MEDS ORDERED: NORCO, ANEXSIA 5/325MG TABLET (HYDROcodone/ACETAMINOPHEN) PO ONE (10:00)
[2017-04-07] MEDS ORDERED: ONDANSETRON 4 MG ORAL DISINTEGRATING TAB (S0181) PO ONE (10:00)
[2017-05-13] MEDS ORDERED: PRENTAB40 PO (11:00)
[2017-05-13] MEDS ORDERED: TYLE325C PO (11:00)
[2017-05-13] MEDS ORDERED: MACR100C43 PO (12:53)
== END 2017-04-07 10:06 | disposition home or self-care (01) ==
LOC: M ED 08:37
DX: G44.319 Acute post-traumatic headache, not intractable (principal); Z87.820 Personal history of traumatic brain injury; Z98.84 Bariatric surgery status; Z79.899 Other long term (current) drug therapy; Z88.8 Allergy status to other drugs, medicaments and biological substances; Z88.0 Allergy status to penicillin; Z88.1 Allergy status to other antibiotic agents